=== PATIENT | female | born 1950 | race Caucasian/White ===

== ENCOUNTER 2020-06-08 22:58 | Inpatient (IN) | payer MEDICARE ==
--- NOTE | 2020-06-09 00:07 | XR ---
EXAMINATION TYPE: XR chest 2V DATE OF EXAM: 06/08/2020 COMPARISON: 12/23/2013 HISTORY: Short of breath TECHNIQUE: 2 views FINDINGS: There is some patchy atelectasis and interstitial infiltrate in the mid lung [place]. Heart size is fairly normal. There is no heart failure. Bony thorax is intact. There is no pleural effusion . IMPRESSION: Increased patchy atelectasis and interstitial infiltrates compared to old exam. No obviou s heart failure.
[2020-06-09] MEDS ORDERED: ACETAMINOPHEN TAB 325 MG TAB PO STA (00:58)
[2020-06-09] MEDS ORDERED: ACETAMINOPHEN TAB 325 MG TAB PO PRN (00:58)
[2020-06-09] MEDS ORDERED: DEXAMETHASONE SOD PHOSPHATE 4 MG/ML 1 ML VIAL IV STA (00:59)
--- NOTE | 2020-06-09 01:08 | ED ---
SOB HPI - General Chief Complaint: Shortness of Breath Stated Complaint: BELEM, Covid+ Time Seen by Provider: 06/09/20 00:50 Source: patient Mode of arrival: wheelchair Limitations: no limitations - History of Present Illness Initial Comments: This patient is 69-year-old woman who presents to be evaluated for fever, cough, and developing shortness of breath. The patient states that she started having symptoms at the end of April. She did go for coronavirus testing and was positive on May 31. Patient states that over the past few days it seems her cough is worsened. Tonight she was feeling warm more progressively short of breath. Patient also has been having some aching pains along the costal margins bilaterally. The pain she states is related to coughing. MD Complaint: shortness of breath, cough -: days(s) Radiation: other (Costal margin) Severity: mild Quality: aching Consistency: constant Improves With: oxygen Worsens With: coughing Associated Symptoms: fever, cough - Related Data Home Medications Medication Instructions Recorded Confirmed Lisinopril-Hctz 10-12.5 mg 1 each PO DAILY 12/23/13 06/09/20 [Zestoretic 10-12.5] Azithromycin [Zithromax Z-pack (6 See Taper PO DIRECTED 06/09/20 06/09/20 tabs)] Allergies Allergy/AdvReac Type Severity Reaction Status Date / Time No Known Allergies Allergy Verified 06/09/20 07:55 Review of Systems ROS Statement: Those systems with pertinent positive or pertinent negative responses have been documented in the HPI. ROS Other: All systems not noted in ROS Statement are negative. Constitutional: Reports: fever, chills Respiratory: Reports: cough, dyspnea. Denies: hemoptysis Cardiovascular: Reports: as per HPI, chest pain. Denies: palpitations, orthopnea, edema, syncope Gastrointestinal: Reports: diarrhea. Denies: abdominal pain, nausea, vomiting Genitourinary: Denies: dysuria, hematuria Musculoskeletal: Denies: back pain Skin: Denies: rash Neurological: Denies: headache, weakness Past Medical History Past Medical History: Hypertension Additional Past Medical History / Comment(s): covid 06/20 History of Any Multi-Drug Resistant Organisms: None Reported Past Surgical History: Appendectomy, Tonsillectomy, Tubal Ligation Additional Past Surgical History / Comment(s): ear sx, Past Psychological History: No Psychological Hx Reported Smoking Status: Never smoker Past Alcohol Use History: Occasional Past Drug Use History: None Reported - Past Family History Mother Family Medical History: Cancer Father Family Medical History: Congestive Heart Failure (CHF), Coronary Artery Disease (CAD) General Exam Limitations: no limitations General appearance: alert, in no apparent distress Head exam: Present: atraumatic, normocephalic ENT exam: Present: mucous membranes dry Neck exam: Present: normal inspection Respiratory exam: Present: respiratory distress, rales, chest wall tenderness (Along costal margins), other (Frequent nonproductive cough). Absent: wheezes, rhonchi, stridor, accessory muscle use, decreased breath sounds Cardiovascular Exam: Present: normal rhythm, tachycardia, normal heart sounds. Absent: systolic murmur, diastolic murmur, rubs, gallop GI/Abdominal exam: Present: soft. Absent: distended, tenderness, guarding, rebound, rigid, mass Extremities exam: Present: normal inspection, normal capillary refill. Absent: pedal edema, calf tenderness Back exam: Present: normal inspection Neurological exam: Present: alert Skin exam: Present: warm, dry, intact, normal color. Absent: rash Course Vital Signs 06/08/20 06/09/20 06/09/20 23:32 01:25 01:30 Temperature 102.3 F H Pulse Rate 115 H 106 H 105 H Respiratory 26 H 14 24 Rate Blood Pressure 155/90 O2 Sat by Pulse 86 L 88 L 88 L Oximetry 06/09/20 06/09/20 06/09/20 01:31 01:33 02:00 Temperature Pulse Rate 106 H 105 H Respiratory 18 19 22 Rate Blood Pressure 131/71 138/73 O2 Sat by Pulse 91 L 92 L Oximetry 06/09/20 06/09/20 06/09/20 03:00 04:00 05:00 Temperature Pulse Rate 98 103 H 96 Respiratory 21 18 24 Rate Blood Pressure 136/76 133/70 150/90 O2 Sat by Pulse 89 L 89 L 90 L Oximetry 06/09/20 06/09/20 06/09/20 06:00 07:00 07:05 Temperature Pulse Rate 91 88 87 Respiratory 20 23 24 Rate Blood Pressure 115/65 95/52 114/72 O2 Sat by Pulse 90 L 92 L 90 L Oximetry 0406/09/20 06/09/20 07:10 07:15 07:20 Temperature Pulse Rate 87 87 89 Respiratory 23 23 22 Rate Blood Pressure 114/72 114/72 114/72 O2 Sat by Pulse 90 L 90 L 90 L Oximetry 06/09/20 06/09/20 06/09/20 07:25 07:27 07:30 Temperature 98.1 F Pulse Rate Respiratory Rate Blood Pressure 114/72 114/72 O2 Sat by Pulse Oximetry 06/09/20 06/09/20 06/09/20 07:35 07:40 07:45 Temperature Pulse Rate 98 97 96 Respiratory 8 L 15 9 L Rate Blood Pressure 114/72 114/72 114/72 O2 Sat by Pulse 92 L 92 L 91 L Oximetry 06/09/20 06/09/20 06/09/20 08:00 10:00 11:00 Temperature Pulse Rate 95 84 81 Respiratory 18 14 22 Rate Blood Pressure 122/76 121/73 124/73 O2 Sat by Pulse 92 L 91 L 90 L Oximetry 06/09/20 06/09/20 06/09/20 12:00 13:00 15:31 Temperature Pulse Rate 79 76 94 Respiratory 21 21 18 Rate Blood Pressure 101/67 107/69 130/77 O2 Sat by Pulse 91 L 89 L 91 L Oximetry Medical Decision Making - Lab Data Result diagrams: 06/09/20 01:30 06/09/20 01:30 Lab Results 06/09/20 06/09/20 06/09/20 Range/Units 01:30 01:30 01:30 WBC 6.5 (3.8-10.6) k/uL RBC 4.79 (3.80-5.40) m/uL Hgb 14.7 (11.4-16.0) gm/dL Hct 42.5 (34.0-46.0) % MCV 88.7 (80.0-100.0) fL MCH 30.6 (25.0-35.0) pg MCHC 34.6 (31.0-37.0) g/dL RDW 12.7 (11.5-15.5) % Plt Count 244 (150-450) k/uL MPV 7.2 Neutrophils % 77 % Lymphocytes % 13 % Monocytes % 6 % Eosinophils % 0 % Basophils % 1 % Neutrophils # 5.0 (1.3-7.7) k/uL Lymphocytes # 0.8 L (1.0-4.8) k/uL Monocytes # 0.4 (0-1.0) k/uL Eosinophils # 0.0 (0-0.7) k/uL Basophils # 0.1 (0-0.2) k/uL PT 10.2 (9.0-12.0) sec INR 0.9 (<1.2) APTT 25.4 (22.0-30.0) sec D-Dimer 0.99 H (<0.60) mg/L FEU Sodium 137 (137-145) mmol/L Potassium 3.5 (3.5-5.1) mmol/L Chloride 97 L (98-107) mmol/L Carbon Dioxide 30 (22-30) mmol/L Anion Gap 10 mmol/L BUN 30 H (7-17) mg/dL Creatinine 0.96 (0.52-1.04) mg/dL Est GFR (CKD-EPI)AfAm 69 (>60 ml/min/1.73 sqM) Est GFR (CKD-EPI)NonAf 60 (>60 ml/min/1.73 sqM) Glucose 140 H (74-99) mg/dL Plasma Lactic Acid Edgar (0.7-2.0) mmol/L Calcium 9.1 (8.4-10.2) mg/dL Magnesium 2.1 (1.6-2.3) mg/dL Ferritin 826.3 H (10.0-291.0) ng/mL Total Bilirubin 0.5 (0.2-1.3) mg/dL AST 45 H (14-36) U/L ALT 31 (4-34) U/L Alkaline Phosphatase 68 (38-126) U/L Lactate Dehydrogenase 1247 H (313-618) U/L C-Reactive Protein 224.8 H (<10.0) mg/L Total Protein 7.3 (6.3-8.2) g/dL Albumin 4.3 (3.5-5.0) g/dL Procalcitonin (0.02-0.09) ng/mL 06/09/20 06/09/20 Range/Units 01:30 01:30 WBC (3.8-10.6) k/uL RBC (3.80-5.40) m/uL Hgb (11.4-16.0) gm/dL Hct (34.0-46.0) % MCV (80.0-100.0) fL MCH (25.0-35.0) pg MCHC (31.0-37.0) g/dL RDW (11.5-15.5) % Plt Count (150-450) k/uL MPV Neutrophils % % Lymphocytes % % Monocytes % % Eosinophils % % Basophils % % Neutrophils # (1.3-7.7) k/uL Lymphocytes # (1.0-4.8) k/uL Monocytes # (0-1.0) k/uL Eosinophils # (0-0.7) k/uL Basophils # (0-0.2) k/uL PT (9.0-12.0) sec INR (<1.2) APTT (22.0-30.0) sec D-Dimer (<0.60) mg/L FEU Sodium (137-145) mmol/L Potassium (3.5-5.1) mmol/L Chloride (98-107) mmol/L Carbon Dioxide (22-30) mmol/L Anion Gap mmol/L BUN (7-17) mg/dL Creatinine (0.52-1.04) mg/dL Est GFR (CKD-EPI)AfAm (>60 ml/min/1.73 sqM) Est GFR (CKD-EPI)NonAf (>60 ml/min/1.73 sqM) Glucose (74-99) mg/dL Plasma Lactic Acid Edgar 1.3 (0.7-2.0) mmol/L Calcium (8.4-10.2) mg/dL Magnesium (1.6-2.3) mg/dL Ferritin (10.0-291.0) ng/mL Total Bilirubin (0.2-1.3) mg/dL AST (14-36) U/L ALT (4-34) U/L Alkaline Phosphatase (38-126) U/L Lactate Dehydrogenase (313-618) U/L C-Reactive Protein (<10.0) mg/L Total Protein (6.3-8.2) g/dL Albumin (3.5-5.0) g/dL Procalcitonin 0.15 H (0.02-0.09) ng/mL - EKG Data -: EKG Interpreted by Me EKG shows normal: sinus rhythm, axis (Normal), intervals (VT interval 140 ms, normal. QTc 483 ms, normal. QRS duration 132 ms, prolonged.), QRS complexes (Right bundle branch block pattern), ST-T waves (Normal) Rate: tachycardia (Rate 107 bpm) Disposition Clinical Impression: COVID-19 Disposition: ADMITTED IP TO THIS HOSP Condition: Fair Is patient prescribed a controlled substance at d/c from ED?: No
[2020-06-09 01:49] LABS: Basophils # (A) 0.1 k/uL (0-0.2); Basophils % (A) 1 %; Eosinophils % (A) 0 %; HCT 42.5 % (34.0-46.0); HGB 14.7 gm/dL (11.4-16.0); Lymphocytes # (A) 0.8 k/uL (1.0-4.8); Lymphocytes % (A) 13 %; MCH 30.6 pg (25.0-35.0); MCHC 34.6 g/dL (31.0-37.0); MCV 88.7 fL (80.0-100.0); Mean Platelet Volume 7.2; Monocytes # (A) 0.4 k/uL (0-1.0); Monocytes % (A) 6 %; Neutrophils % (A) 77 %; Platelet Count 244 k/uL (150-450); RBC 4.79 m/uL (3.80-5.40); RDW 12.7 % (11.5-15.5); WBC 6.5 k/uL (3.8-10.6)
[2020-06-09 02:09] LABS: INR 0.9 (<1.2); Partial Thromboplastin Time 25.4 sec (22.0-30.0); Prothrombin Time 10.2 sec (9.0-12.0)
[2020-06-09 02:10] LABS: Potassium 3.5 mmol/L (3.5-5.1)
[2020-06-09 02:14] LABS: Magnesium 2.1 mg/dL (1.6-2.3)
[2020-06-09 02:15] LABS: Albumin 4.3 g/dL (3.5-5.0); Calcium 9.1 mg/dL (8.4-10.2); Total Bilirubin 0.5 mg/dL (0.2-1.3); Total Protein 7.3 g/dL (6.3-8.2)
[2020-06-09 02:22] LABS: D-Dimer 0.99 mg/L FEU (<0.60)
[2020-06-09 02:33] LABS: C Reactive Protein 224.8 mg/L (<10.0)
[2020-06-09] MEDS ORDERED: NALOXONE 0.4 MG/ML 1 ML VIAL IV PRN (03:55)
[2020-06-09] MEDS ORDERED: traMADol 50 MG TAB PO PRN (03:58)
--- NOTE | 2020-06-09 05:19 | CT ---
EXAM: CT Angiography Chest With Intravenous Contrast CLINICAL HISTORY: ITS.REASON CT Reason: R/O PE TECHNIQUE: Axial computed tomographic angiography images of the chest with intravenous contrast. CTDI is 14.27 mGy and DLP is 341.2 mGy-cm. This CT exam was performed using one or more of the following dose reduction techniques: automated exposure control, adjustment of the mA and/or kV according to patient size, and/or use of iterative reconstruction technique. MIP reconstructed images were created and reviewed. COMPARISON: No relevant prior studies available. FINDINGS: Pulmonary arteries: No filling defects. Dilated to 35 mm. Aorta: No thoracic aortic aneurysm. Lungs: Patchy bilateral ground glass opacities. Patchy consolidations in the lower lobes. Pleural space: No pneumothorax. No effusion. Heart: No cardiomegaly. No pericardial effusion. Bones/joints: No acute fracture or dislocation. Soft tissues: 25 mm low density nodule in the bilateral adrenal glands. Moderate hiatal hernia. Lymph nodes: Prominent mediastinal lymph nodes. IMPRESSION: 1. Patchy bilateral ground glass opacities. Patchy consolidations in the lower lobes. Correlate with infectious process/COVID. 2. No PE. Pulmonary artery dilated to 35 mm, correlate with pulmonary artery hypertension. 3. 25 mm low density nodule in the bilateral adrenal glands. Likely adenomas. 4. Moderate hiatal hernia.
[2020-06-09] MEDS: LISINOPRIL-HCTZ 10-12.5 MG 1 EACH TAB PO SCH (08:37)
[2020-06-09] MEDS: CHOLECALCIFEROL 25 MCG (1000 IU) TABLET PO SCH (08:38)
[2020-06-09] MEDS: NAPROXEN 250 MG TAB PO SCH ×2 (08:38→22:18)
[2020-06-09] MEDS: DEXAMETHASONE SOD PHOSPHATE 10 MG/ML 1 ML VIAL IV SCH (08:39)
[2020-06-09] MEDS ORDERED: ASCORBIC ACID 500 MG TAB PO SCH (09:00)
[2020-06-09 09:44] LABS: Ferritin 826.3 ng/mL (10.0-291.0)
--- NOTE | 2020-06-09 16:23 | P.CNPUL ---
History of Present Illness Consult date: 06/09/20 Reason for consult: dyspnea, cough, hypoxemia, pneumonia Chief complaint: Shortness of breath and cough started about 11-12 days ago History of present illness: Patient is a pleasant 69-year-old female seen eval reexamined the emergency department, patient started having symptoms of cough and shortness of breath and of April on May 31 she tested positive for coronary 19 pneumonia, symptoms were persistent and progressive decided to come into the hospital for further evaluation, patient has a history of hypertension and hypertensive cardiovascular disease disease and peptic ulcer disease, patient is a nonsmoker, on arrival she was noted to be febrile with fever of 102.3 tachycardic tachypneic with oxygen saturation of 86%, she was noted to be positive for mildly elevated d-dimer of 0.99, appeared to be slightly dehydrated with BUN of 30, inflammatory parameters are elevated including ferritin of 826, LDH of 1247, and C-reactive protein of 224, pro calcitonin is up 0.15, her chest x-ray significant for bilateral interstitial trait consistent with: 19 pneumonia, computed tomography scan of the chest negative for pulmonary embolism but revealed bilateral interstitial infiltrate and patchy consolidation of lower lobes currently patient is being treated with Lovenox as well as Decadron, and continuation of her home medicines along with supplemental oxygen, Review of Systems All systems: negative Past Medical History Past Medical History: Hypertension Additional Past Medical History / Comment(s): covid 06/20 History of Any Multi-Drug Resistant Organisms: None Reported Past Surgical History: Appendectomy, Tonsillectomy, Tubal Ligation Additional Past Surgical History / Comment(s): ear sx, Past Psychological History: No Psychological Hx Reported Smoking Status: Never smoker Past Alcohol Use History: Occasional Past Drug Use History: None Reported Medications and Allergies Home Medications Medication Instructions Recorded Confirmed Type Lisinopril-Hctz 10-12.5 mg 1 each PO DAILY 12/23/13 06/09/20 History [Zestoretic 10-12.5] Azithromycin [Zithromax Z-pack (6 See Taper PO DIRECTED 06/09/20 06/09/20 History tabs)] Allergies Allergy/AdvReac Type Severity Reaction Status Date / Time No Known Allergies Allergy Verified 06/09/20 07:55 Physical Exam Vitals: Vital Signs Temp Pulse Resp BP Pulse Ox 06/09/20 15:31 94 18 130/77 91 L 06/09/20 13:00 76 21 107/69 89 L 06/09/20 12:00 79 21 101/67 91 L 06/09/20 11:00 81 22 124/73 90 L 06/09/20 10:00 84 14 121/73 91 L 06/09/20 08:00 95 18 122/76 92 L 06/09/20 07:45 96 9 L 114/72 91 L 06/09/20 07:40 97 15 114/72 92 L 06/09/20 07:35 98 8 L 114/72 92 L 06/09/20 07:30 114/72 06/09/20 07:27 98.1 F 06/09/20 07:25 114/72 06/09/20 07:20 89 22 114/72 90 L 06/09/20 07:15 87 23 114/72 90 L 06/09/20 07:10 87 23 114/72 90 L 06/09/20 07:05 87 24 114/72 90 L 06/09/20 07:00 88 23 95/52 92 L 06/09/20 06:00 91 20 115/65 90 L 06/09/20 05:00 96 24 150/90 90 L 06/09/20 04:00 103 H 18 133/70 89 L 06/09/20 03:00 98 21 136/76 89 L 06/09/20 02:00 105 H 22 138/73 92 L 06/09/20 01:33 19 06/09/20 01:31 106 H 18 131/71 91 L 06/09/20 01:30 105 H 24 88 L 06/09/20 01:25 106 H 14 88 L 06/08/20 23:32 102.3 F H 115 H 26 H 155/90 86 L Intake and Output 06/09/20 06/09/20 06/09/20 06:59 14:59 22:59 Other: Weight 90.718 kg - Constitutional General appearance: cooperative, disheveled, obese - EENT Eyes: PERRLA Ears: bilateral: normal - Neck Neck: normal ROM Carotids: bilateral: upstroke normal Thyroid: bilateral: normal size - Respiratory Respiratory: bilateral: CTA - Cardiovascular Rhythm: regular Heart sounds: normal: S1, S2 - Gastrointestinal General gastrointestinal: normal bowel sounds - Integumentary Integumentary: normal turgor - Neurologic Neurologic: CNII-XII intact - Musculoskeletal Musculoskeletal: gait normal, generalized weakness, strength equal bilaterally - Psychiatric Psychiatric: A&O x's 3, appropriate affect, intact judgment & insight Results - Laboratory Findings CBC and BMP: 06/09/20 01:30 06/09/20 01:30 PT/INR, D-dimer PT 10.2 sec (9.0-12.0) 06/09/20 01:30 INR 0.9 (<1.2) 06/09/20 01:30 D-Dimer 0.99 mg/L FEU (<0.60) H 06/09/20 01:30 Abnormal lab findings: Abnormal Labs 06/09/20 06/09/20 06/09/20 01:30 01:30 01:30 Lymphocytes # 0.8 L D-Dimer 0.99 H Chloride 97 L BUN 30 H Glucose 140 H Ferritin 826.3 H AST 45 H Lactate Dehydrogenase 1247 H C-Reactive Protein 224.8 H Procalcitonin 06/09/20 01:30 Lymphocytes # D-Dimer Chloride BUN Glucose Ferritin AST Lactate Dehydrogenase C-Reactive Protein Procalcitonin 0.15 H - Diagnostic Findings Chest x-ray: report reviewed, image reviewed CT scan - chest: report reviewed, image reviewed (Finding as above however secondary bacterial pneumonia cannot be excluded) Assessment and Plan Assessment: Covid 19 pneumonia Acute hypoxic respiratory failure Secondary bacterial pneumonia Obesity Hypertension hypertensive cardiovascular disease Plan: IV Rocephin Continue Decadron Supplemental oxygen Deep breathing exercises incentive spirometry Prone positioning Will do a trial of IV REMdesivir Time with Patient: Greater than 30
[2020-06-09] MEDS: ENOXAPARIN 40 MG/0.4 ML SYRINGE SQ SCH (16:48)
[2020-06-09] MEDS ORDERED: REMDESIVIR 200 MG in SODIUM CHLORIDE 0.9% 250 ML IVPB ONE (18:00)
[2020-06-09] MEDS: FAMOTIDINE 20 MG TAB PO SCH (20:46)
[2020-06-09] MEDS ORDERED: FAMOTIDINE 20 MG TAB PO SCH (21:00)
--- NOTE | 2020-06-09 21:04 | P.HPIM ---
History of Present Illness H&P Date: 06/09/20 Chief Complaint: Shortness of breath History of presenting complaint: This is a very pleasant [address] Alvarez. Patient tested for COVID on May 31. Patient symptoms is started 2 days prior to that. Patient started of her shortness of breath and developed significant headache and body aches. Chills. Henry very fatigued. No loss of taste or smell. Decreased appetite. Became very short of breath. Decided to come to the ER. Fever also present. 102.3 and arrival. Pulse ox was 86% on room air Review of systems: GEN.: Febrile tired decreased appetite EYES: None HEENT: None NECK: None RESPIRATORY: As above CARDIOVASCULAR: None GASTROINTESTINAL: None GENITOURINARY: None MUSCULOSKELETAL: Muscle and joint pains LYMPHATICS: None HEMATOLOGICAL: None PSYCHIATRY: None NEUROLOGICAL: None Past medical history to include: Hypertension, COVID diagnosed on May 31 Social history: . No history of smoking. Alcohol occasionally. Physical examination: VITAL SIGNS: 102.3, 115, 26, 155/90, 86% on room air GENERAL: BMI 32.3, laying in bed, short of breath. EYES: Pupils equal. Conjunctiva normal. HEENT: External appearance of nose and ears normal, oral cavity grossly normal. NECK: JVD not raised; masses not palpable. HEART: First and second heart sounds are normal; no edema. LUNGS: Respiratory rate increased, decreased breath sound some basal crackles. ABDOMEN: Soft, nontender, liver spleen not palpable, no masses palpable. PSYCH: [Alert and oriented x3; mood and affect slightly anxious l. NEUROLOGICAL: Cranial nerves grossly intact; no facial asymmetry, power and sensation grossly intact. LYMPHATICS: No lymph nodes palpable in the axilla and neck INVESTIGATIONS, reviewed in the clinical context: WBC 6.5 hemoglobin 14.7 platelets 244 d-dimer 0.99 potassium 3.5 creatinine 0.96 CRP to 24 pro-calcitonin 0.15 EKG tracing personally reviewed by me-normal sinus rhythm with a right bundle branch block Chest x-ray film personally reviewed by me-bilateral infiltrate CT angiography chest with IV contrast: Patchy bilateral groundglass opacities. Patchy consolidation in the lower lobes. Assessment and plan: -Acute bilateral COVID 19 pneumonia. Symptoms started on May 29 and patient was diagnosed with COVID 19 positivity on May 31 Patient be started on IV Decadron, subcu Lovenox, vitamin C absent vitamin D. Started on IV Remdesivir by pulmonary. -Acute hypoxic respiratory failure from COVID 19 pneumonia Patient currently on 6 L of nasal cannula -Obesity BMI 32.3 Weight loss measures and follow-up with PCP -Essential hypertension Continue with Zestoretic -DVT prophylaxis Patient is on Lovenox Care was discussed with the patient. Questions were answered. Consultation to pulmonary. Given the complexity and severity of patient's condition expect the patient to be in the hospital at least for 2 overnights Past Medical History Past Medical History: Hypertension Additional Past Medical History / Comment(s): covid 06/20 History of Any Multi-Drug Resistant Organisms: None Reported Past Surgical History: Appendectomy, Tonsillectomy, Tubal Ligation Additional Past Surgical History / Comment(s): ear sx, Past Psychological History: No Psychological Hx Reported Smoking Status: Never smoker Past Alcohol Use History: Occasional Past Drug Use History: None Reported - Past Family History Mother Family Medical History: Cancer Father Family Medical History: Congestive Heart Failure (CHF), Coronary Artery Disease (CAD) Medications and Allergies Home Medications Medication Instructions Recorded Confirmed Type Lisinopril-Hctz 10-12.5 mg 1 each PO DAILY 12/23/13 06/09/20 History [Zestoretic 10-12.5] Azithromycin [Zithromax Z-pack (6 See Taper PO DIRECTED 06/09/20 06/09/20 History tabs)] Allergies Allergy/AdvReac Type Severity Reaction Status Date / Time No Known Allergies Allergy Verified 06/09/20 07:55 Physical Exam Vitals: Vital Signs Temp Pulse Resp BP Pulse Ox 06/09/20 08:00 95 18 122/76 92 L 06/09/20 07:45 96 9 L 114/72 91 L 06/09/20 07:40 97 15 114/72 92 L 06/09/20 07:35 98 8 L 114/72 92 L 06/09/20 07:30 114/72 06/09/20 07:27 98.1 F 06/09/20 07:25 114/72 06/09/20 07:20 89 22 114/72 90 L 06/09/20 07:15 87 23 114/72 90 L 06/09/20 07:10 87 23 114/72 90 L 06/09/20 07:05 87 24 114/72 90 L 06/09/20 07:00 88 23 95/52 92 L 06/09/20 06:00 91 20 115/65 90 L 06/09/20 05:00 96 24 150/90 90 L 06/09/20 04:00 103 H 18 133/70 89 L 06/09/20 03:00 98 21 136/76 89 L 06/09/20 02:00 105 H 22 138/73 92 L 06/09/20 01:33 19 06/09/20 01:31 106 H 18 131/71 91 L 06/09/20 01:30 105 H 24 88 L 06/09/20 01:25 106 H 14 88 L 06/08/20 23:32 102.3 F H 115 H 26 H 155/90 86 L Intake and Output 06/08/20 06/09/20 06/09/20 22:59 06:59 14:59 Other: Weight 90.718 kg Results CBC & Chem 7: 06/09/20 01:30 06/09/20 01:30 Labs: Abnormal Lab Results - Last 24 Hours (Table) 06/09/20 06/09/20 06/09/20 Range/Units 01:30 01:30 01:30 Lymphocytes # 0.8 L (1.0-4.8) k/uL D-Dimer 0.99 H (<0.60) mg/L FEU Chloride 97 L (98-107) mmol/L BUN 30 H (7-17) mg/dL Glucose 140 H (74-99) mg/dL Ferritin 826.3 H (10.0-291.0) ng/mL AST 45 H (14-36) U/L Lactate Dehydrogenase 1247 H (313-618) U/L C-Reactive Protein 224.8 H (<10.0) mg/L Procalcitonin (0.02-0.09) ng/mL 06/09/20 Range/Units 01:30 Lymphocytes # (1.0-4.8) k/uL D-Dimer (<0.60) mg/L FEU Chloride (98-107) mmol/L BUN (7-17) mg/dL Glucose (74-99) mg/dL Ferritin (10.0-291.0) ng/mL AST (14-36) U/L Lactate Dehydrogenase (313-618) U/L C-Reactive Protein (<10.0) mg/L Procalcitonin 0.15 H (0.02-0.09) ng/mL
[2020-06-09] MEDS: ZINC SULFATE 220 MG CAP PO SCH (22:19)
--- NOTE | 2020-06-10 06:50 | CONS ---
CONSULTATION DATE OF SERVICE: 06/09/2020 REASON FOR CONSULTATION: COVID-19 infection. HISTORY OF PRESENT ILLNESS: The patient is a 69-year-old female who started having symptoms mostly of head congestion cold around May 27, 2020. The patient did have shortness of breath and cough and initially was evaluated on May 31. The patient was diagnosed with COVID-19 infection. No specific treatment has been advised. Patient advised to increase her multivitamin and zinc intake. The patient mentioned she did not have resolution of her symptoms, however, she started having increasing shortness of breath on minimal exertion. She also had a cough which is moderate in intensity with occasional clear sputum. No hemoptysis. Denies any pleuritic chest pain. The patient did have nausea and decreased appetite. No vomiting. Did have diarrhea. With these symptoms, the patient presented back to the hospital where the patient was evaluated by the ER physician. On arrival to the ER, the patient did have fever of 102.3 degrees Fahrenheit. The patient was hypoxic with O2 sats of 86% on room air. The patient did have a normal white count with lymphopenia. D-dimer 0.99, creatinine 0.96. Ferritin, LDH, CRP elevated. Procalcitonin 0.15. The patient did have a chest x-ray, increased patchy atelectasis in this patient compared to old exam. The patient did have a CT angiogram of the chest that was negative for PE but did show pulmonary hypertension, low density nodule bilateral adenoid glands and patchy bilateral ground-glass opacities. The patient has been admitted to the hospital. Infectious Disease was consulted for further management. REVIEW OF SYSTEMS: Positive points have been mentioned in HPI. Rest of systems are negative. PAST MEDICAL HISTORY: Hypertension, COVID-19. PAST SURGICAL HISTORY: Appendectomy, tonsillectomy, tubal ligation. SOCIAL HISTORY: Denies smoking. Occasionally drinks, no drug use. FAMILY HISTORY: No pertinent findings noticed. ALLERGIES: No known drug allergies. MEDICATIONS: The patient is currently on Tylenol, vitamin C, Rocephin 1 g daily, she is on vitamin D3, Decadron, Lovenox, Pepcid, Zestoretic, Narcan, naproxen, remdesivir, Ultram and zinc sulfate. PHYSICAL EXAMINATION: VITAL SIGNS: Blood pressure 132/87 with a pulse of 84, temperature 98.1, she is 90% on 6 L nasal cannula. GENERAL DESCRIPTION: Patient is an elderly female up in the chair in no distress. No tachypnea or accessory muscles of respiration use. HEENT: Examination shows no pallor or scleral icterus. Oral mucous membrane is dry. NECK: Trachea central, no thyromegaly. LUNGS: Unlabored breathing, coarse crackles bilaterally, no wheeze. HEART: S1-S2, regular rate and rhythm. ABDOMEN: Soft, no tenderness. No guarding or rigidity. EXTREMITIES: No edema of the feet. SKIN: No rash or mass palpable. NEUROLOGICAL: Patient is awake, alert, oriented times three. Mood and affect normal. LABS: Hemoglobin is 14.7, white count 6.5, BUN of 13, creatinine 0.96. 826. Chest x- ray and CT report as mentioned above. DIAGNOSTIC IMPRESSION: Patient admitted to the hospital with increasing shortness of breath and cough. This patient has been diagnosed with acute COVID-19 infection with symptoms starting on 05/27/2020. The patient is currently day 14 of her symptoms and likely out of the therapeutic benefit from remdesivir. Clinical suspicion low for secondary bacterial pneumonia. PLAN: 1. Treat patient mostly with Decadron, Lovenox, zinc and ascorbic acid. No need for systemic antibiotic therapy. 2. Droplet isolation and respiratory support. 3. We will follow on clinical condition and further adjust medication if needed. Thank you for this consultation. Will follow this patient along with you. MMODL / IJN: [id number] /
[2020-06-10] MEDS: LISINOPRIL-HCTZ 10-12.5 MG 1 EACH TAB PO SCH (07:58)
[2020-06-10] MEDS: DEXAMETHASONE SOD PHOSPHATE 10 MG/ML 1 ML VIAL IV SCH (07:58)
[2020-06-10] MEDS: ENOXAPARIN 40 MG/0.4 ML SYRINGE SQ SCH (07:58)
[2020-06-10] MEDS: FAMOTIDINE 20 MG TAB PO SCH ×2 (07:58→20:43)
[2020-06-10] MEDS: CHOLECALCIFEROL 25 MCG (1000 IU) TABLET PO SCH (07:58)
[2020-06-10] MEDS: NAPROXEN 250 MG TAB PO SCH ×2 (07:59→23:22)
[2020-06-10] MEDS: ASCORBIC ACID 500 MG TAB PO SCH (07:59)
[2020-06-10] MEDS: ZINC SULFATE 220 MG CAP PO SCH (07:59)
--- NOTE | 2020-06-10 14:17 | P.PN ---
Subjective Progress Note Date: 06/10/20 Principal diagnosis: Covid 19 pneumonia Acute hypoxic respiratory failure Secondary bacterial pneumonia Obesity Hypertension hypertensive cardiovascular disease 06/10/2020, patient seen eval examined during the rounds labs reviewed medications reviewed care plan discussed, patient slightly more short of breath today compared to yesterday, has been on 6 L oxygen nasal cannula, afebrile with saturation are 95% hemodynamic status stable, patient remains on broad-spectrum antibiotics along with Decadron and Lovenox with continuation of home medications, patient is also on IV REMdesivir five-day therapy with supplements will get chest x-ray tomorrow, Patient is a pleasant 69-year-old female seen eval reexamined the emergency department, patient started having symptoms of cough and shortness of breath and of April on May 31 she tested positive for coronary 19 pneumonia, symptoms were persistent and progressive decided to come into the hospital for further evaluation, patient has a history of hypertension and hypertensive cardiovascular disease disease and peptic ulcer disease, patient is a nonsmoker, on arrival she was noted to be febrile with fever of 102.3 tachycardic tachypneic with oxygen saturation of 86%, she was noted to be positive for mildly elevated d-dimer of 0.99, appeared to be slightly dehydrated with BUN of 30, inflammatory parameters are elevated including ferritin of 826, LDH of 1247, and C-reactive protein of 224, pro calcitonin is up 0.15, her chest x-ray significant for bilateral interstitial trait consistent with: 19 pneumonia, com puted tomography scan of the chest negative for pulmonary embolism but revealed bilateral interstitial infiltrate and patchy consolidation of lower lobes currently patient is being treated with Lovenox as well as Decadron, and continuation of her home medicines along with supplemental oxygen, Objective - Vital Signs Vital signs: Vital Signs Temp 98.5 F 06/10/20 13:48 Pulse 84 06/10/20 13:48 Resp 17 06/10/20 13:48 BP 134/81 06/10/20 13:48 Pulse Ox 95 06/10/20 13:48 Intake & Output 06/09/20 06/10/20 06/10/20 18:59 06:59 18:59 Intake Total 850 Balance 850 Weight 90.718 kg Intake: Oral 850 Other: Voiding Method Toilet Toilet - Exam - Constitutional General appearance: cooperative, disheveled, obese - EENT Eyes: PERRLA Ears: bilateral: normal - Neck Neck: normal ROM Carotids: bilateral: upstroke normal Thyroid: bilateral: normal size - Respiratory Respiratory: bilateral: CTA - Cardiovascular Rhythm: regular Heart sounds: normal: S1, S2 - Gastrointestinal General gastrointestinal: normal bowel sounds - Integumentary Integumentary: normal turgor - Neurologic Neurologic: CNII-XII intact - Musculoskeletal Musculoskeletal: gait normal, generalized weakness, strength equal bilaterally - Psychiatric Psychiatric: A&O x's 3, appropriate affect, intact judgment & insight - Labs CBC & Chem 7: 06/09/20 01:30 06/09/20 01:30 Labs: Abnormal Lab Results - Last 24 Hours (Table) 06/10/20 06/10/20 Range/Units 06:11 06:11 D-Dimer 0.80 H (<0.60) mg/L FEU C-Reactive Protein 86.6 H (<10.0) mg/L Microbiology - Last 24 Hours (Table) 06/09/20 01:35 Blood Culture - Preliminary Blood No Growth after 24 hours 06/09/20 01:20 Blood Culture - Preliminary Blood No Growth after 24 hours Assessment and Plan Assessment: Covid 19 pneumonia Acute hypoxic respiratory failure Secondary bacterial pneumonia Obesity Hypertension hypertensive cardiovascular disease Plan: IV Rocephin Continue Decadron Supplemental oxygen, to keep saturation over 88-90% or above Deep breathing exercises incentive spirometry Prone positioning Five-day therapy of IV REMdesivir Chest x-ray in the morning Time with Patient: Greater than 30
[2020-06-10] MEDS: REMDESIVIR 100 MG in SODIUM CHLORIDE 0.9% 250 ML IVPB SCH (17:05)
--- NOTE | 2020-06-10 19:26 | XR ---
EXAMINATION TYPE: XR chest 1V DATE OF EXAM: 06/10/2020 COMPARISON: 06/09/2020 HISTORY: Shortness of breath. TECHNIQUE: Single frontal view of the chest is obtained. FINDINGS: There is unchanged right midlung patchy opacity with scarring. There is decreased prominen ce of additional bilateral diffuse patchy opacities, which is less conspicuous on radiographs however better depicted on CT. No pleural effusion, or pneumothorax seen. The cardiac silhouette size is wi thin normal limits. The osseous structures are intact. IMPRESSION: As above.
--- NOTE | 2020-06-10 20:18 | PN ---
PROGRESS NOTE DATE OF SERVICE: 06/10/2020 REASON FOR FOLLOWUP: COVID-19 pneumonia. INTERVAL HISTORY: The patient is currently afebrile. The patient is breathing comfortably compared to yesterday. Denies having any chest pain. She did have a cough, has decreased in intensity. No nausea, vomiting or diarrhea. PHYSICAL EXAMINATION: Blood pressure 129/86, pulse of 83, temperature 98.6. She is 96% on 6 L nasal cannula. General description is an elderly female up in the chair in no distress. Respiratory system: Unlabored breathing, decreased intensity of breath sounds. No wheeze. Heart S1, S2. Regular rate and rhythm. Abdomen soft, no tenderness. LABS: D-dimer is down to 0.80. CRP is down to 86.6. IMPRESSION/PLAN: Patient with acute COVID-19 infection and this patient currently has clinically responded to current treatment protocol of dexamethasone, Lovenox, Remdesivir and iron sulfate. Clinical suspicious low for secondary bacterial pneumonia. No need for systemic antibiotic therapy. MMODL / IJN: [id number] /
--- NOTE | 2020-06-10 20:26 | P.PN ---
Progress Note - Text Progress Note Date: 06/10/20 Chief Complaint: Shortness of breath History of presenting complaint: This is a very pleasant [address] Alvarez. tested positive for COVID on May 31. Patient symptoms started 2 days prior to that. Started with shortness of breath and developed significant headache and body aches. Chills. [place] very fatigued. No loss of taste or smell. Decreased appetite. Became very short of breath. Decided to come to the ER. Fever also present. 102.3 upon arrival. Pulse ox was 86% on room air Admitted with acute bilateral COVID 19 pneumonia, acute hypoxic respiratory failure. Started IV Decadron, Lovenox. Oxygen supplemented. Today: 6 L of nasal cannula. Short of breath. A bit tired. Started on Remdesivir Review of systems: Was done for constitutional, cardiovascular, GI, pulmonary. relevant finding as above Active Medications Acetaminophen (Acetaminophen Tab 325 Mg Tab) 650 mg PO Q4HR PRN PRN Reason: Fever>101 Ascorbic Acid (Ascorbic Acid 500 Mg Tab) 1,000 mg PO DAILY [facility] Last Admin: 06/10/20 07:59 Dose: 1,000 mg Documented by: Cholecalciferol (Cholecalciferol 25 Mcg (1000 Iu) Tablet) 50 mcg PO DAILY [facility] Last Admin: 06/10/20 07:58 Dose: 50 mcg Documented by: Dexamethasone Sodium Phosphate (Dexamethasone Sod Phosphate 10 Mg/Ml 1 Ml Vial) 6 mg IV DAILY [facility] Last Admin: 06/10/20 07:58 Dose: 6 mg Documented by: Enoxaparin Sodium (Enoxaparin 40 Mg/0.4 Ml Syringe) 40 mg SQ DAILY [facility] Last Admin: 06/10/20 07:58 Dose: 40 mg Documented by: Famotidine (Famotidine 20 Mg Tab) 20 mg PO BID [facility] Last Admin: 06/10/20 07:58 Dose: 20 mg Documented by: Guaifenesin (Guaifenesin 600 Mg Tablet.Er) 600 mg PO Q12HR [facility] Lisinopril/HCTZ (Lisinopril-Hctz 10-12.5 Mg 1 Each Tab) 1 each PO DAILY [facility] Last Admin: 06/10/20 07:58 Dose: 1 each Documented by: Remdesivir 100 mg/ Sodium (Chloride) 250 mls @ 250 mls/hr IVPB Q24H [facility] Stop: 06/13/20 18:59 Last Admin: 06/10/20 17:05 Dose: 250 mls/hr Documented by: Naloxone HCl (Naloxone 0.4 Mg/Ml 1 Ml Vial) 0.2 mg IV Q2M PRN PRN Reason: Opioid Reversal Naproxen (Naproxen 250 Mg Tab) 500 mg PO Q12HR [facility] Last Admin: 06/10/20 07:59 Dose: Not Given Documented by: Tramadol HCl (Tramadol 50 Mg Tab) 50 mg PO Q4H PRN PRN Reason: Pain Zinc Sulfate (Zinc Sulfate 220 Mg Cap) 220 mg PO DAILY [facility] Last Admin: 06/10/20 07:59 Dose: 220 mg Documented by: Past medical history to include: Hypertension, COVID diagnosed on May 31 Social history: . No history of smoking. Alcohol occasionally. Physical examination: VITAL SIGNS: 97.7, 84, 17, 134/81, 95% on 6 L GENERAL: Laying in bed, tired, short of breath LUNGS: Respiratory rate increased, PSYCH: [Alert and oriented x3; mood and affect slightly anxious l. NEUROLOGICAL: Cranial nerves grossly intact; no facial asymmetry, moving all 4 limbs Rest of the exam as per pulmonary, presenting INVESTIGATIONS, reviewed in the clinical context: June 10: D-dimer 0.8 CRP 86.6 WBC 6.5 hemoglobin 14.7 platelets 244 d-dimer 0.99 potassium 3.5 creatinine 0.96 CRP to 24 pro-calcitonin 0.15 EKG tracing personally reviewed by me-normal sinus rhythm with a right bundle branch block Chest x-ray film personally reviewed by me-bilateral infiltrate CT angiography chest with IV contrast: Patchy bilateral groundglass opacities. Patchy consolidation in the lower lobes. Assessment and plan: -Acute bilateral COVID 19 pneumonia. Symptoms started on May 29 and patient was diagnosed with COVID 19 positivity on May 31-slow to respond on IV Decadron, subcu Lovenox, vitamin C absent vitamin D. IV Remdesivir -Sepsis from COVID 19 pneumonia IV fluids -Acute hypoxic respiratory failure from COVID 19 pneumonia-slow to respond Patient currently on 6 L of nasal cannula -Obesity BMI 32.3 Weight loss measures and follow-up with PCP -Essential hypertension Continue with Zestoretic -DVT prophylaxis Patient is on Lovenox Continue current medication treatment plan. Encouraged use incentive spirometry. Sitting upon a chair.
[2020-06-10] MEDS: guaiFENesin 600 MG TABLET.ER PO SCH (20:43)
[2020-06-11] MEDS: NAPROXEN 250 MG TAB PO SCH ×3 (08:43→21:02)
[2020-06-11] MEDS: ZINC SULFATE 220 MG CAP PO SCH (08:43)
[2020-06-11] MEDS: DEXAMETHASONE SOD PHOSPHATE 10 MG/ML 1 ML VIAL IV SCH (08:43)
[2020-06-11] MEDS: LISINOPRIL-HCTZ 10-12.5 MG 1 EACH TAB PO SCH (08:43)
[2020-06-11] MEDS: guaiFENesin 600 MG TABLET.ER PO SCH ×2 (08:43→21:02)
[2020-06-11] MEDS: CHOLECALCIFEROL 25 MCG (1000 IU) TABLET PO SCH (08:44)
[2020-06-11] MEDS: FAMOTIDINE 20 MG TAB PO SCH ×2 (08:44→21:01)
[2020-06-11] MEDS: ASCORBIC ACID 500 MG TAB PO SCH (08:44)
[2020-06-11] MEDS: ENOXAPARIN 40 MG/0.4 ML SYRINGE SQ SCH (08:44)
[2020-06-11] MEDS: REMDESIVIR 100 MG in SODIUM CHLORIDE 0.9% 250 ML IVPB SCH (16:56)
--- NOTE | 2020-06-11 18:42 | PN ---
PROGRESS NOTE DATE OF SERVICE: 06/11/2020 REASON FOR FOLLOWUP: COVID-19 infection. INTERVAL HISTORY: The patient is currently afebrile. The patient is breathing more comfortably. The patient denies having any chest pain. Occasional cough. No abdominal pain or diarrhea. FiO2 is currently down to 4 L. PHYSICAL EXAMINATION: Blood pressure 143/76, pulse of 70, temperature 98.7. She is 93% on 4 L nasal cannula. General description is an elderly female up in the bed in no distress. RESPIRATORY SYSTEM: Unlabored breathing with decreased intensity of breath sounds. No wheeze. HEART: S1, S2. Regular rate and rhythm. ABDOMEN: Soft. No tenderness. LABS: No new labs have been obtained today. DIAGNOSTIC IMPRESSION AND PLAN: Patient with acute COVID-19 infection in this patient clinically responding to current treatment protocol of remdesivir, dexamethasone, Lovenox, zinc and ascorbic acid; to continue along with respiratory support. Monitor clinical course closely. MMELMIRAL / IJN: [id number] /
--- NOTE | 2020-06-11 23:01 | P.PN ---
Progress Note - Text Progress Note Date: 06/11/20 Chief Complaint: Shortness of breath History of presenting complaint: This is a very pleasant [address] Alvarez. tested positive for COVID on May 31. Patient symptoms started 2 days prior to that. Started with shortness of breath and developed significant headache and body aches. Chills. [place] very fatigued. No loss of taste or smell. Decreased appetite. Became very short of breath. Decided to come to the ER. Fever also present. 102.3 upon arrival. Pulse ox was 86% on room air Admitted with acute bilateral COVID 19 pneumonia, acute hypoxic respiratory failure. Started IV Decadron, Lovenox. Oxygen supplemented. Remdesivir Today: Breathing better. On 6 L nasal cannula. Appetite improving Review of systems: Was done for constitutional, cardiovascular, GI, pulmonary. relevant finding as above Active Medications Acetaminophen (Acetaminophen Tab 325 Mg Tab) 650 mg PO Q4HR PRN PRN Reason: Fever>101 Ascorbic Acid (Ascorbic Acid 500 Mg Tab) 1,000 mg PO DAILY [facility] Last Admin: 06/11/20 08:44 Dose: 1,000 mg Documented by: Cholecalciferol (Cholecalciferol 25 Mcg (1000 Iu) Tablet) 50 mcg PO DAILY [facility] Last Admin: 06/11/20 08:44 Dose: 50 mcg Documented by: Dexamethasone Sodium Phosphate (Dexamethasone Sod Phosphate 10 Mg/Ml 1 Ml Vial) 6 mg IV DAILY [facility] Last Admin: 06/11/20 08:43 Dose: 6 mg Documented by: Enoxaparin Sodium (Enoxaparin 40 Mg/0.4 Ml Syringe) 40 mg SQ DAILY [facility] Last Admin: 06/11/20 08:44 Dose: 40 mg Documented by: Famotidine (Famotidine 20 Mg Tab) 20 mg PO BID [facility] Last Admin: 06/11/20 21:01 Dose: 20 mg Documented by: Guaifenesin (Guaifenesin 600 Mg Tablet.Er) 600 mg PO Q12HR [facility] Last Admin: 06/11/20 21:02 Dose: 600 mg Documented by: Lisinopril/HCTZ (Lisinopril-Hctz 10-12.5 Mg 1 Each Tab) 1 each PO DAILY [facility] Last Admin: 06/11/20 08:43 Dose: 1 each Documented by: Remdesivir 100 mg/ Sodium (Chloride) 250 mls @ 250 mls/hr IVPB Q24H [facility] Stop: 06/13/20 18:59 Last Admin: 06/11/20 16:56 Dose: 250 mls/hr Documented by: Naloxone HCl (Naloxone 0.4 Mg/Ml 1 Ml Vial) 0.2 mg IV Q2M PRN PRN Reason: Opioid Reversal Naproxen (Naproxen 250 Mg Tab) 500 mg PO Q12HR [facility] Last Admin: 06/11/20 21:02 Dose: Not Given Documented by: Tramadol HCl (Tramadol 50 Mg Tab) 50 mg PO Q4H PRN PRN Reason: Pain Zinc Sulfate (Zinc Sulfate 220 Mg Cap) 220 mg PO DAILY [facility] Last Admin: 06/11/20 08:43 Dose: 220 mg Documented by: Past medical history to include: Hypertension, COVID diagnosed on May 31 Social history: . No history of smoking. Alcohol occasionally. Physical examination: VITAL SIGNS: 98.3, 87, 16, 146-89, 96% on 6 L GENERAL: Sitting up, breathing a bit better LUNGS: Respiratory rate increased, PSYCH: [Alert and oriented x3; mood and affect slightly anxious NEUROLOGICAL: Cranial nerves grossly intact; no facial asymmetry, moving all 4 limbs Rest of the exam as per pulmonary, presenting INVESTIGATIONS, reviewed in the clinical context: June 10: D-dimer 0.8 CRP 86.6 WBC 6.5 hemoglobin 14.7 platelets 244 d-dimer 0.99 potassium 3.5 creatinine 0.96 CRP to 24 pro-calcitonin 0.15 EKG tracing personally reviewed by me-normal sinus rhythm with a right bundle branch block Chest x-ray film personally reviewed by me-bilateral infiltrate CT angiography chest with IV contrast: Patchy bilateral groundglass opacities. Patchy consolidation in the lower lobes. Assessment and plan: -Acute bilateral COVID 19 pneumonia. Symptoms started on May 29 and patient was diagnosed with COVID 19 positivity on May 31-slow to respond on IV Decadron, subcu Lovenox, vitamin C absent vitamin D. IV Remdesivir -Sepsis from COVID 19 pneumonia IV fluids -Acute hypoxic respiratory failure from COVID 19 pneumonia-slow to respond Patient currently on 6 L of nasal cannula -Obesity BMI 32.3 Weight loss measures and follow-up with PCP -Essential hypertension Continue with Zestoretic -DVT prophylaxis Patient is on Lovenox Continue current medication treatment plan. Encouraged use incentive spirometry. Sitting upon a chair.
[2020-06-12] MEDS: ENOXAPARIN 40 MG/0.4 ML SYRINGE SQ SCH (08:33)
[2020-06-12] MEDS: ZINC SULFATE 220 MG CAP PO SCH (08:34)
[2020-06-12] MEDS: DEXAMETHASONE SOD PHOSPHATE 10 MG/ML 1 ML VIAL IV SCH (08:34)
[2020-06-12] MEDS: ASCORBIC ACID 500 MG TAB PO SCH (08:34)
[2020-06-12] MEDS: FAMOTIDINE 20 MG TAB PO SCH ×2 (08:34→20:21)
[2020-06-12] MEDS: guaiFENesin 600 MG TABLET.ER PO SCH ×2 (08:35→20:21)
[2020-06-12] MEDS: LISINOPRIL-HCTZ 10-12.5 MG 1 EACH TAB PO SCH (08:35)
[2020-06-12] MEDS: NAPROXEN 250 MG TAB PO SCH ×2 (08:35→20:03)
[2020-06-12] MEDS: CHOLECALCIFEROL 25 MCG (1000 IU) TABLET PO SCH (08:35)
--- NOTE | 2020-06-12 11:45 | P.PN ---
Subjective Progress Note Date: 06/11/20 Principal diagnosis: Covid 19 pneumonia Acute hypoxic respiratory failure Secondary bacterial pneumonia Obesity Hypertension hypertensive cardiovascular disease 06/11/2020, patient seen eval reexamined remains on 2 L, cough congestion shortness breath continued to improve patient remains on therapy for coronary 19 pneumonia 06/10/2020, patient seen eval examined during the rounds labs reviewed medications reviewed care plan discussed, patient slightly more short of breath today compared to yesterday, has been on 6 L oxygen nasal cannula, afebrile with saturation are 95% hemodynamic status stable, patient remains on broad-spectrum antibiotics along with Decadron and Lovenox with continuation of home medications, patient is also on IV REMdesivir five-day therapy with supplements will get chest x-ray tomorrow, Patient is a pleasant 69-year-old female seen eval reexamined the emergency department, patient started having symptoms of cough and shortness of breath and of April on May 31 she tested positive for coronary 19 pneumonia, symptoms were persistent and progressive decided to come into the hospital for further evaluation, patient has a history of hypertension and hypertensive cardiovascular disease disease and peptic ulcer disease, patient is a nonsmoker, on arrival she was noted to be febrile with fever of 102.3 tachycardic tachypneic with oxygen saturation of 86%, she was noted to be positive for mildly elevated d-dimer of 0.99, appeared to be slightly dehydrated with BUN of 30, inflammatory parameters are elevated including ferritin of 826, LDH of 1247, and C-reactive protein of 224, pro calcitonin is up 0.15, her chest x-ray significant for bilateral interstitial trait consistent with: 19 pneumonia, computed tomography scan of the chest negative for pulmonary embolism but revealed bilateral interstitial infiltrate and patchy consolidation of lower lobes currently patient is being treated with Lovenox as well as Decadron, and continuation of her home medicines along with supplemental oxygen, Objective - Vital Signs Vital signs: Vital Signs Temp 98.3 F 06/11/20 13:17 Pulse 87 06/11/20 13:17 Resp 16 06/11/20 10:59 BP 146/89 06/11/20 13:17 Pulse Ox 93 L 06/11/20 13:55 Intake & Output 06/10/20 06/11/20 06/11/20 18:59 06:59 18:59 Intake Total 850 Balance 850 Intake: Oral 850 Other: Voiding Method Toilet Toilet # Voids 3 3 - Exam - Constitutional General appearance: cooperative, disheveled, obese - EENT Eyes: PERRLA Ears: bilateral: normal - Neck Neck: normal ROM Carotids: bilateral: upstroke normal Thyroid: bilateral: normal size - Respiratory Respiratory: bilateral: CTA - Cardiovascular Rhythm: regular Heart sounds: normal: S1, S2 - Gastrointestinal General gastrointestinal: normal bowel sounds - Integumentary Integumentary: normal turgor - Neurologic Neurologic: CNII-XII intact - Musculoskeletal Musculoskeletal: gait normal, generalized weakness, strength equal bilaterally - Psychiatric Psychiatric: A&O x's 3, appropriate affect, intact judgment & insight - Labs CBC & Chem 7: 06/09/20 01:30 06/09/20 01:30 Labs: Microbiology - Last 24 Hours (Table) 06/09/20 01:20 Blood Culture - Preliminary Blood No Growth after 48 hours 06/09/20 01:35 Blood Culture - Preliminary Blood No Growth after 48 hours Assessment and Plan Assessment: Covid 19 pneumonia Acute hypoxic respiratory failure Secondary bacterial pneumonia Obesity Hypertension hypertensive cardiovascular disease Plan: IV Rocephin Continue Decadron Supplemental oxygen, to keep saturation over 88-90% or above Deep breathing exercises incentive spirometry Prone positioning Five-day therapy of IV REMdesivir Chest x-ray in the morning Time with Patient: Greater than 30
--- NOTE | 2020-06-12 11:46 | P.PN ---
Subjective Progress Note Date: 06/12/20 Principal diagnosis: Covid 19 pneumonia Acute hypoxic respiratory failure Secondary bacterial pneumonia Obesity Hypertension hypertensive cardiovascular disease 06/12/2020, patient seen eval examined during the rounds labs reviewed medications reviewed, would check room air oxygen saturations, continue therapy possible discharge in next 24-48 hours depending upon the clinical response 06/11/2020, patient seen eval reexamined remains on 2 L, cough congestion shortness breath continued to improve patient remains on therapy for coronary 19 pneumonia 06/10/2020, patient seen eval examined during the rounds labs reviewed medications reviewed care plan discussed, patient slightly more short of breath today compared to yesterday, has been on 6 L oxygen nasal cannula, afebrile with saturation are 95% hemodynamic status stable, patient remains on broad-spectrum antibiotics along with Decadron and Lovenox with continuation of home medications, patient is also on IV REMdesivir five-day therapy with supplements will get chest x-ray tomorrow, Patient is a pleasant 69-year-old female seen eval reexamined the emergency department, patient started having symptoms of cough and shortness of breath and of April on May 31 she tested positive for coronary 19 pneumonia, symptoms were persistent and progressive decided to come into the hospital for further evaluation, patient has a history of hypertension and hypertensive cardiovascular disease disease and peptic ulcer disease, patient is a nonsmoker, on arrival she was noted to be febrile with fever of 102.3 tachycardic tachypneic with oxygen saturation of 86%, she was noted to be positive for mildly elevated d-dimer of 0.99, appeared to be slightly dehydrated with BUN of 30, inflammatory parameters are elevated including ferritin of 826, LDH of 1247, and C-reactive protein of 224, pro calcitonin is up 0.15, her chest x-ray significant for bilateral interstitial trait consistent with: 19 pneumonia, computed tomography scan of the chest negative for pulmonary embolism but revealed bilateral interstitial infiltrate and patchy consolidation of lower lobes currently patient is being treated with Lovenox as well as Decadron, and continuation of her home medicines along with supplemental oxygen, Objective - Vital Signs Vital signs: Vital Signs Temp 97.7 F 06/12/20 08:00 Pulse 66 06/12/20 08:35 Resp 18 06/12/20 08:35 BP 160/95 06/12/20 08:00 Pulse Ox 93 L 06/12/20 08:00 Intake & Output 06/11/20 06/12/20 06/12/20 18:59 06:59 18:59 Other: Voiding Method Toilet # Voids 3 2 - Exam - Constitutional General appearance: cooperative, disheveled, obese - EENT Eyes: PERRLA Ears: bilateral: normal - Neck Neck: normal ROM Carotids: bilateral: upstroke normal Thyroid: bilateral: normal size - Respiratory Respiratory: bilateral: CTA - Cardiovascular Rhythm: regular Heart sounds: normal: S1, S2 - Gastrointestinal General gastrointestinal: normal bowel sounds - Integumentary Integumentary: normal turgor - Neurologic Neurologic: CNII-XII intact - Musculoskeletal Musculoskeletal: gait normal, generalized weakness, strength equal bilaterally - Psychiatric Psychiatric: A&O x's 3, appropriate affect, intact judgment & insight - Labs CBC & Chem 7: 06/09/20 01:30 06/09/20 01:30 Labs: Abnormal Lab Results - Last 24 Hours (Table) 06/12/20 Range/Units 04:50 C-Reactive Protein 32.5 H (<10.0) mg/L Microbiology - Last 24 Hours (Table) 06/09/20 01:35 Blood Culture - Preliminary Blood No Growth after 72 hours 06/09/20 01:20 Blood Culture - Preliminary Blood No Growth after 72 hours Assessment and Plan Assessment: Covid 19 pneumonia Acute hypoxic respiratory failure Secondary bacterial pneumonia Obesity Hypertension hypertensive cardiovascular disease Plan: IV Rocephin Continue Decadron Supplemental oxygen, to keep saturation over 88-90% or above Deep breathing exercises incentive spirometry Prone positioning Five-day therapy of IV REMdesivir Time with Patient: Greater than 30
[2020-06-12] MEDS: REMDESIVIR 100 MG in SODIUM CHLORIDE 0.9% 250 ML IVPB SCH (19:41)
--- NOTE | 2020-06-12 20:35 | PN ---
PROGRESS NOTE DATE OF SERVICE: 06/12/2020 REASON FOR FOLLOWUP: COVID-19 pneumonia. INTERVAL HISTORY: The patient is afebrile. The patient is breathing slightly comfortably. The patient denies having any chest pain. She did have a cough, not bringing up any sputum. No nausea, no vomiting, no abdominal pain or diarrhea. PHYSICAL EXAMINATION: Blood pressure 144/85, pulse of 67, temperature 98.2. She is 95% on 2 L nasal cannula. General description is an elderly female up in the chair in no distress. RESPIRATORY SYSTEM: Unlabored breathing with decreased intensity of breath sounds. No wheeze. HEART: S1, S2. Regular rate and rhythm. ABDOMEN: Soft. No tenderness. LABS: D-dimer is 0.55. CRP down to 32.5. DIAGNOSTIC IMPRESSION AND PLAN: Patient with acute COVID-19 pneumonia in this patient who has shown overall clinical improvement. Inflammatory marker has improved as well. Currently on dexamethasone, Lovenox, zinc, ascorbic acid and remdesivir; to continue and monitor clinical course closely. Continue with supportive care. MMODL / IJN: [id number] /
--- NOTE | 2020-06-12 22:42 | P.PN ---
Progress Note - Text Progress Note Date: 06/12/20 Chief Complaint: Shortness of breath History of presenting complaint: This is a very pleasant [address] Alvarez. tested positive for COVID on May 31. Patient symptoms started 2 days prior to that. Started with shortness of breath and developed significant headache and body aches. Chills. [place] very fatigued. No loss of taste or smell. Decreased appetite. Became very short of breath. Decided to come to the ER. Fever also present. 102.3 upon arrival. Pulse ox was 86% on room air Admitted with acute bilateral COVID 19 pneumonia, acute hypoxic respiratory failure. Started IV Decadron, Lovenox. Oxygen supplemented. Remdesivir Today: Breathing better. FiO2 down to 3 L. Oral intake better. Sitting up. Review of systems: Was done for constitutional, cardiovascular, GI, pulmonary. relevant finding as above Active Medications Acetaminophen (Acetaminophen Tab 325 Mg Tab) 650 mg PO Q4HR PRN PRN Reason: Fever>101 Ascorbic Acid (Ascorbic Acid 500 Mg Tab) 1,000 mg PO DAILY [facility] Last Admin: 06/12/20 08:34 Dose: 1,000 mg Documented by: Cholecalciferol (Cholecalciferol 25 Mcg (1000 Iu) Tablet) 50 mcg PO DAILY [facility] Last Admin: 06/12/20 08:35 Dose: 50 mcg Documented by: Dexamethasone Sodium Phosphate (Dexamethasone Sod Phosphate 10 Mg/Ml 1 Ml Vial) 6 mg IV DAILY [facility] Last Admin: 06/12/20 08:34 Dose: 6 mg Documented by: Enoxaparin Sodium (Enoxaparin 40 Mg/0.4 Ml Syringe) 40 mg SQ DAILY [facility] Last Admin: 06/12/20 08:33 Dose: 40 mg Documented by: Famotidine (Famotidine 20 Mg Tab) 20 mg PO BID [facility] Last Admin: 06/12/20 20:21 Dose: 20 mg Documented by: Guaifenesin (Guaifenesin 600 Mg Tablet.Er) 600 mg PO Q12HR [facility] Last Admin: 06/12/20 20:21 Dose: 600 mg Documented by: Lisinopril/HCTZ (Lisinopril-Hctz 10-12.5 Mg 1 Each Tab) 1 each PO DAILY [facility] Last Admin: 06/12/20 08:35 Dose: 1 each Documented by: Remdesivir 100 mg/ Sodium (Chloride) 250 mls @ 250 mls/hr IVPB Q24H [facility] Stop: 06/13/20 18:59 Last Admin: 06/12/20 19:41 Dose: 250 mls/hr Documented by: Naloxone HCl (Naloxone 0.4 Mg/Ml 1 Ml Vial) 0.2 mg IV Q2M PRN PRN Reason: Opioid Reversal Naproxen (Naproxen 250 Mg Tab) 500 mg PO Q12HR [facility] Last Admin: 06/12/20 20:03 Dose: Not Given Documented by: Tramadol HCl (Tramadol 50 Mg Tab) 50 mg PO Q4H PRN PRN Reason: Pain Zinc Sulfate (Zinc Sulfate 220 Mg Cap) 220 mg PO DAILY [facility] Last Admin: 06/12/20 08:34 Dose: 220 mg Documented by: Past medical history to include: Hypertension, COVID diagnosed on May 31 Social history: . No history of smoking. Alcohol occasionally. Physical examination: VITAL SIGNS: 98, 76, 16, 1 5188, 93% on 2 L GENERAL: Sitting up, in a chair, eating, breathing improved LUNGS: Respiratory rate increased, PSYCH: [Alert and oriented x3; mood and affect slightly anxious NEUROLOGICAL: Cranial nerves grossly intact; no facial asymmetry, moving all 4 limbs Rest of the exam as per pulmonary, presenting INVESTIGATIONS, reviewed in the clinical context: June 12: D-dimer 0.55 CRP 32.5 June 10: D-dimer 0.8 CRP 86.6 WBC 6.5 hemoglobin 14.7 platelets 244 d-dimer 0.99 potassium 3.5 creatinine 0.96 CRP to 24 pro-calcitonin 0.15 EKG tracing personally reviewed by me-normal sinus rhythm with a right bundle branch block Chest x-ray film personally reviewed by me-bilateral infiltrate CT angiography chest with IV contrast: Patchy bilateral groundglass opacities. Patchy consolidation in the lower lobes. Assessment and plan: -Acute bilateral COVID 19 pneumonia. Symptoms started on May 29 and patient was diagnosed with COVID 19 positivity on May 31-improving on IV Decadron, subcu Lovenox, vitamin C t vitamin D. IV Remdesivir -Sepsis from COVID 19 pneumonia-better IV fluids -Acute hypoxic respiratory failure from COVID 19 much improved Patient currently on 2 L of nasal cannula -Obesity BMI 32.3 Weight loss measures and follow-up with PCP -Essential hypertension Continue with Zestoretic -DVT prophylaxis Patient is on Lovenox Patient has significantly improved. He'll be getting a last dose of Remdesivir tomorrow. Can be discharged home after that. We will reassess oxygen requirement tomorrow.
[2020-06-13] MEDS: DEXAMETHASONE SOD PHOSPHATE 10 MG/ML 1 ML VIAL IV SCH (07:47)
[2020-06-13] MEDS: ENOXAPARIN 40 MG/0.4 ML SYRINGE SQ SCH (07:47)
[2020-06-13] MEDS: ASCORBIC ACID 500 MG TAB PO SCH (07:48)
[2020-06-13] MEDS: CHOLECALCIFEROL 25 MCG (1000 IU) TABLET PO SCH (07:48)
[2020-06-13] MEDS: FAMOTIDINE 20 MG TAB PO SCH (07:48)
[2020-06-13] MEDS: guaiFENesin 600 MG TABLET.ER PO SCH (07:48)
[2020-06-13] MEDS: ZINC SULFATE 220 MG CAP PO SCH (07:48)
[2020-06-13] MEDS: LISINOPRIL-HCTZ 10-12.5 MG 1 EACH TAB PO SCH (07:48)
[2020-06-13] MEDS: NAPROXEN 250 MG TAB PO SCH (09:27)
[2020-06-13 10:44] VITALS: BP 149/83; PULSE 79; RESP 18; TEMP 97.4
--- NOTE | 2020-06-13 11:24 | P.PN ---
Subjective Progress Note Date: 06/13/20 Principal diagnosis: Covid 19 pneumonia Acute hypoxic respiratory failure Secondary bacterial pneumonia Obesity Hypertension hypertensive cardiovascular disease 06/13/2020, patient seen eval reexamined during the rounds labs reviewed medications reviewed care plan discussed with the patient, denies any chest pain, now down to 3 L of cannula with taper further however patient can be discharged home on supplemental oxygen follow up as outpatient 06/12/2020, patient seen eval examined during the rounds labs reviewed medications reviewed, would check room air oxygen saturations, continue therapy possible discharge in next 24-48 hours depending upon the clinical response 06/11/2020, patient seen eval reexamined remains on 2 L, cough congestion shortness breath continued to improve patient remains on therapy for coronary 19 pneumonia 06/10/2020, patient seen eval examined during the rounds labs reviewed medications reviewed care plan discussed, patient slightly more short of breath today compared to yesterday, has been on 6 L oxygen nasal cannula, afebrile with saturation are 95% hemodynamic status stable, patient remains on broad-spectrum antibiotics along with Decadron and Lovenox with continuation of home medications, patient is also on IV REMdesivir five-day therapy with supplements will get chest x-ray tomorrow, Patient is a pleasant 69-year-old female seen eval reexamined the emergency department, patient started having symptoms of cough and shortness of breath and of April on May 31 she tested positive for coronary 19 pneumonia, symptoms were persistent and progressive decided to come into the hospital for further evaluation, patient has a history of hypertension and hypertensive cardiovascular disease disease and peptic ulcer disease, patient is a nonsmoker, on arrival she was noted to be febrile with fever of 102.3 tachycardic tachypne ic with oxygen saturation of 86%, she was noted to be positive for mildly elevated d-dimer of 0.99, appeared to be slightly dehydrated with BUN of 30, inflammatory parameters are elevated including ferritin of 826, LDH of 1247, and C-reactive protein of 224, pro calcitonin is up 0.15, her chest x-ray significant for bilateral interstitial trait consistent with: 19 pneumonia, computed tomography scan of the chest negative for pulmonary embolism but revealed bilateral interstitial infiltrate and patchy consolidation of lower lobes currently patient is being treated with Lovenox as well as Decadron, and continuation of her home medicines along with supplemental oxygen, Objective - Vital Signs Vital signs: Vital Signs Temp 97.4 F L 06/13/20 10:30 Pulse 79 06/13/20 10:30 Resp 18 06/13/20 10:30 BP 149/83 06/13/20 10:30 Pulse Ox 94 L 06/13/20 10:30 Intake & Output 06/12/20 06/13/20 06/13/20 18:59 06:59 18:59 Other: Voiding Method Toilet Toilet Toilet # Voids 2 - Exam - Constitutional General appearance: cooperative, disheveled, obese - EENT Eyes: PERRLA Ears: bilateral: normal - Neck Neck: normal ROM Carotids: bilateral: upstroke normal Thyroid: bilateral: normal size - Respiratory Respiratory: bilateral: CTA - Cardiovascular Rhythm: regular Heart sounds: normal: S1, S2 - Gastrointestinal General gastrointestinal: normal bowel sounds - Integumentary Integumentary: normal turgor - Neurologic Neurologic: CNII-XII intact - Musculoskeletal Musculoskeletal: gait normal, generalized weakness, strength equal bilaterally - Psychiatric Psychiatric: A&O x's 3, appropriate affect, intact judgment & insight - Labs CBC & Chem 7: 06/09/20 01:30 06/09/20 01:30 Labs: Microbiology - Last 24 Hours (Table) 06/09/20 01:35 Blood Culture - Preliminary Blood No Growth after 96 hours 06/09/20 01:20 Blood Culture - Preliminary Blood No Growth after 96 hours Assessment and Plan Assessment: Covid 19 pneumonia Acute hypoxic respiratory failure Secondary bacterial pneumonia Obesity Hypertension hypertensive cardiovascular disease Plan: IV Rocephin, can be switched to oral Ceftin 250 twice a day for 5 days at the time of discharge Continue Decadron can be switched to oral 6 mg daily for another 1 week to 10 days Supplemental oxygen, to keep saturation over 88-90% or above Deep breathing exercises incentive spirometry Prone positioning Status post Five-day therapy of IV REMdesivir Patient can go home on supplemental oxygen follow up telemetry medicine in 1-2 weeks Time with Patient: Greater than 30
[2020-06-13] MEDS ORDERED: REMDESIVIR 100 MG in SODIUM CHLORIDE 0.9% 250 ML IVPB SCH (13:00)
--- NOTE | 2020-06-13 22:35 | P.DS ---
Providers Date of admission: 06/09/20 03:56 Expected date of discharge: 06/13/20 Attending physician: Sebastián Norwood Consults: 06/09/20 03:56 Consult Physician Routine Consulting Provider: Efrain Morse Consult Reason/Comments: Covid pneumonia Do you want consulting provider notified?: Already Contacted 06/09/20 10:45 Consult Physician Routine Consulting Provider: Trino Garcia Consult Reason/Comments: covid-19 Do you want consulting provider notified?: Yes Primary care physician: [facility] [place] Course: Chief Complaint: Shortness of breath History of presenting complaint: This is a very pleasant [address] Alvarez. tested positive for COVID on May 31. Patient symptoms started 2 days prior to that. Started with shortness of breath and developed significant headache and body aches. Chills. [place] very fatigued. No loss of taste or smell. Decreased appetite. Became very short of breath. Decided to come to the ER. Fever also present. 102.3 upon arrival. Pulse ox was 86% on room air Admitted with acute bilateral COVID 19 pneumonia, acute hypoxic respiratory failure. Started IV Decadron, Lovenox. Oxygen supplemented. Remdesivir Today: Patient greatly improved. Oral intake good. Pulse ox 93% room air. Very keen to go home. Care was discussed with the patient. Discussion and discharge planning more than 35 minutes Consultation: Dr. Saima Morse from pulmonary Past medical history to include: Hypertension, COVID diagnosed on May 31 Social history: . No history of smoking. Alcohol occasionally. Physical examination: VITAL SIGNS: 97.4, 79, 18, 149 with 83, 93% on room air GENERAL: Sitting up, in a chair, comfortable LUNGS: Respiratory rate normal, PSYCH: [Alert and oriented x3; mood and affect normal NEUROLOGICAL: Cranial nerves grossly intact; no facial asymmetry, moving all 4 limbs Rest of the exam as per pulmonary, presenting INVESTIGATIONS, reviewed in the clinical context: June 12: D-dimer 0.55 CRP 32.5 June 10: D-dimer 0.8 CRP 86.6 WBC 6.5 hemoglobin 14.7 platelets 244 d-dimer 0.99 potassium 3.5 creatinine 0.96 CRP to 24 pro-calcitonin 0.15 EKG tracing personally reviewed by me-normal sinus rhythm with a right bundle branch block Chest x-ray film personally reviewed by me-bilateral infiltrate CT angiography chest with IV contrast: Patchy bilateral groundglass opacities. Patchy consolidation in the lower lobes. Assessment and plan: -Acute bilateral COVID 19 pneumonia. Symptoms started on May 29 and patient was diagnosed with COVID 19 positivity on May 31-much improved on IV Decadron, subcu Lovenox, vitamin C t vitamin D. IV Remdesivir -Sepsis from COVID 19 pneumonia-better IV fluids -Acute hypoxic respiratory failure from COVID 19 much improved Now 93% on room air -Obesity BMI 32.3 Weight loss measures and follow-up with PCP -Essential hypertension Continue with Zestoretic -DVT prophylaxis Patient is on Lovenox Disposition: Home Plan - Discharge Summary Discharge Rx Participant: Yes New Discharge Prescriptions: New Zinc Sulfate [Orazinc] 220 mg PO DAILY #30 cap predniSONE 10 mg PO DAILY #30 tab Acetaminophen Tab [Tylenol] 650 mg PO Q4HR PRN tab PRN Reason: Fever>101 Ascorbic Acid [Vitamin C] 1,000 mg PO DAILY #30 tab Rivaroxaban [Xarelto] 2.5 mg PO DAILY #30 tablet Famotidine [Pepcid] 20 mg PO BID #60 tab Cholecalciferol [Vitamin D3 (25 Mcg = 1000 Iu)] 50 mcg PO DAILY #90 tablet Continue Lisinopril-Hctz 10-12.5 mg [Zestoretic 10-12.5] 1 each PO DAILY Discontinued Azithromycin [Zithromax Z-pack (6 tabs)] See Taper PO DIRECTED Discharge Medication List Lisinopril-Hctz 10-12.5 mg [Zestoretic 10-12.5] 1 each PO DAILY 12/23/13 [History] Acetaminophen Tab [Tylenol] 650 mg PO Q4HR PRN tab 06/13/20 [Rx] Ascorbic Acid [Vitamin C] 1,000 mg PO DAILY #30 tab 06/13/20 [Rx] Cholecalciferol [Vitamin D3 (25 Mcg = 1000 Iu)] 50 mcg PO DAILY #90 tablet 06/13/20 [Rx] Famotidine [Pepcid] 20 mg PO BID #60 tab 06/13/20 [Rx] Rivaroxaban [Xarelto] 2.5 mg PO DAILY #30 tablet 06/13/20 [Rx] Zinc Sulfate [Orazinc] 220 mg PO DAILY #30 cap 06/13/20 [Rx] predniSONE 10 mg PO DAILY #30 tab 06/13/20 [Rx] Follow up Appointment(s)/Referral(s): Aquilino Alvarez MD [Primary Care Provider] - 06/26/20 2:00 pm Efrain Morse MD [STAFF PHYSICIAN] - 06/27/20 1:00 pm Patient Instructions/Handouts: Coronavirus Disease 2019 (COVID-19) Activity/Diet/Wound Care/Special Instructions: incentive spirometer covid isolation Discharge Disposition: HOME SELF-CARE
== END 2020-06-13 15:47 | disposition home or self-care (01) | DRG 871 ==
LOC: EC 22:58 → 4SSUR 06-09 03:56
PROVIDERS: ADMIT Hospitalist; ATTEND Hospitalist
PROC: XW033E5 Introduction of Remdesivir Anti-infective into Peripheral Vein, Percutaneous Approach, New Technology Group 5 (ICD-10-PCS; principal; 2020-06-09)
DX: A41.89 Other specified sepsis (principal); U07.1 COVID-19; J12.82 Pneumonia due to coronavirus disease 2019; J96.01 Acute respiratory failure with hypoxia; J15.9 Unspecified bacterial pneumonia; D72.810 Lymphocytopenia; I27.20 Pulmonary hypertension, unspecified; I11.9 Hypertensive heart disease without heart failure; E86.0 Dehydration; E66.9 Obesity, unspecified; Z79.899 Other long term (current) drug therapy; Z90.49 Acquired absence of other specified parts of digestive tract; Z90.89 Acquired absence of other organs; Z98.51 Tubal ligation status; Z98.890 Other specified postprocedural states; Z82.49 Family history of ischemic heart disease and other diseases of the circulatory system; Z80.9 Family history of malignant neoplasm, unspecified; Z68.32 Body mass index [BMI] 32.0-32.9, adult; Z87.11 Personal history of peptic ulcer disease
CPT/HCPCS: 36415; 71045; 71046; 71275; 80053; 82728; 83605; 83615; 83735; 84145; 85025; 85379; 85610; 85730; 86140; 87040; 93005; 94760; 96374; 99285

== ENCOUNTER → 2023-07-22 | Outpatient (CLI) | payer MEDICARE ==
[2023-07-22 15:32] VITALS: BP 145/86; PULSE 104; RESP 16; TEMP 98
--- NOTE | 2023-07-22 15:41 | P.SLEEP ---
History of Present Illness DATE: 07/22/2023 CONSULTATION/NEW PATIENT EVALUATION HISTORY OF PRESENT ILLNESS/SLEEP-WAKE EVALUATION: 72-year-old lady had been e valuated in the sleep center for obstructive sleep apnea hypopnea syndrome. Patient has history of obstructive sleep apnea hypopnea syndrome since 2016. Patient continued to use your CPAP equipment every night. Presently she has second CPAP unit which is about 1-year-old. I checked CPAP unit range of the pressure 5-15, average pressure 10.7 cm of H2O. Usage is more than 90% of nights, average 6.2 hours per night. Leak is 24 L/min which is borderline, apnea-hypopnea index is 1.0 which is normal. Tube temperature is low 70 degree. SLEEP SCHEDULE: Usually sleep schedule from 10 PM to 6 AM 7 days a week. FALLING ASLEEP: No problems with falling asleep. DURING SLEEP: No snoring while using CPAP. Patient may wake up from sleep once to use bathroom. No history of hypnogogical hallucinations, sleep paralysis, or cataplexy. DURING THE DAY/WAKE STATE: Patient may take 1 nap at afternoon time. [place] sleepiness scale is 9, which is borderline. PAST MEDICAL HISTORY: Hypertension, hyperlipidemia, diabetes mellitus type 2, acid reflux, knee and hip arthritis. PAST SURGICAL HISTORY: Ear surgery. MEDICATIONS: Please see below. SOCIAL HISTORY: Please see below. FAMILY HISTORY: Hypertension, heart problems, cancer. REVIEW OF SYSTEMS: No snoring on CPAP. No fevers. No double vision. No recent chest pain. No shortness of breath. No abdominal pain. No bleeding episodes. No blood in urine. No seizure episodes. PHYSICAL EXAMINATION: GENERAL: A pleasant patient without any distress. VITAL SIGNS: Please see below, weight 203 pounds, body mass index 33.2. HEENT: PERRLA, EOMI. Evaluation of oropharynx showed tongue protrudes midline, low position of soft palate Mallampati 4. NECK: Supple. No JVD. Thyroid is not palpable. 16.5 inches in circumference. LUNGS: Clear to percussion and to auscultation. Good air exchange. No wheezing or rhonchi. HEART: S1, S2 regular. No murmurs, gallops or rubs. ABDOMEN: Soft and nontender. Bowel sounds are present. No organomegaly appreciated. EXTREMITIES: No clubbing or cyanosis. SECONDARY SCHOOL REGISTRAR: Awake, alert, and oriented x3. Cranial nerves 2 to 7 intact. There is no fasciculation or atrophy noted. No focal deficits observed. ASSESSMENT: 1. Obstructive sleep apnea hypopnea syndrome for 16 years diagnosed at another institution. Patient continued to use CPAP equipment every night for the whole night. No snoring or awakenings from sleep while using CPAP. Extremely low position of soft palate Mallampati 4, wide neck 16.5 inches in circumference. 2. Mild obesity, BMI 33.2. 3. Hypertension. 4. Diabetes mellitus type 2. 5 hyperlipidemia. 6 . Acid reflux. 7. Knee and hip arthritis. PLAN: 1. Patient should continue to use CPAP equipment every night for the whole night. 2. Prescription for all necessary CPAP supplies. 3. Preferable position during sleep on the side. 4. No driving if patient feels any sleepiness. Patient is aware of civil and criminal liability for unsafe driving. 5. Sleep hygiene with regular sleep time for at least 7.5-8 hours. 6. Watching and losing weight. 7. Temperature in the tube was adjusted up to 80 degree. 8. Will get results of previous sleep studies. 9. Follow-up visit in 6 months, or earlier if patient has any problems. Thank you very much for referring this patient for consultation. Sincerely, Robert Almendarez MD, PhD, FAASM. Diplomat of [place] [employer], Sleep Medicine Board by [place] [employer] [place] [employer] [facility] [employer] cc: Sunday Alvarez MD Past Medical History Past Medical History: Hypertension, Osteoarthritis (OA), Sleep Apnea/CPAP/BIPAP Additional Past Medical History / Comment(s): covid 06/20 History of Any Multi-Drug Resistant Organisms: None Reported Past Surgical History: Appendectomy, Tonsillectomy, Tubal Ligation Additional Past Surgical History / Comment(s): ear sx, Past Anesthesia/Blood Transfusion Reactions: No Reported Reaction Past Psychological History: No Psychological Hx Reported Smoking Status: Never smoker Past Alcohol Use History: Occasional Past Drug Use History: None Reported - Past Family History Mother Family Medical History: Cancer Father Family Medical History: Congestive Heart Failure (CHF), Coronary Artery Disease (CAD) Medications and Allergies Home Medications Medication Instructions Recorded Confirmed Type Lisinopril-Hctz 10-12.5 mg 1 each PO DAILY 12/23/13 06/09/20 History [Zestoretic 10-12.5] Acetaminophen Tab [Tylenol] 650 mg PO Q4HR PRN tab 06/13/20 Rx Ascorbic Acid [Vitamin C] 1,000 mg PO DAILY #30 tab 06/13/20 Rx Cholecalciferol [Vitamin D3 (25 50 mcg PO DAILY #90 tablet 06/13/20 Rx Mcg = 1000 Iu)] Famotidine [Pepcid] 20 mg PO BID #60 tab 06/13/20 Rx Rivaroxaban [Xarelto] 2.5 mg PO DAILY #30 tablet 06/13/20 Rx Zinc Sulfate [Orazinc] 220 mg PO DAILY #30 cap 06/13/20 Rx predniSONE 10 mg PO DAILY #30 tab 06/13/20 Rx Celecoxib 200 mg PO BID 07/22/23 07/22/23 History Lisinopril-Hctz 20-12.5 mg 20 mg PO DAILY 07/22/23 07/22/23 History [Zestoretic 20-12.5] Mv-Min/FA/Vit K/Lutein/Zeaxant 1 capsule PO DAILY 07/22/23 07/22/23 History [Preservision Areds 2 Plus Mv] Omeprazole 20 mg PO DAILY 07/22/23 07/22/23 History Rosuvastatin Calcium 5 mg PO DAILY 07/22/23 07/22/23 History Vit C/E/Zn/Coppr/Lutein/Zeaxan 07/22/23 History [Preservision Areds 2 Softgel] metFORMIN HCL ER [Glucophage XR] 1,000 mg PO DAILY MDD 1000 MG 07/22/23 07/22/23 History Allergies Allergy/AdvReac Type Severity Reaction Status Date / Time No Known Allergies Allergy Verified 06/09/20 07:55 Physical Exam Vitals: Vital Signs Temp Pulse Resp BP Pulse Ox 07/22/23 14:44 98 F 104 H 16 145/86 93 L Intake and Output 07/22/23 07/22/23 07/22/23 06:59 14:59 22:59 Other: Weight 92.079 kg Sleep Note - Sleep Data ESS Total: 9 - Sleep Note Sleep Note: Temperature: 98 F Pulse Rate: 104 Respiratory Rate: 16 Blood Pressure: 145/86 SpO2: 93 Height: 5 ft 5.5 in Weight: 92.079 kg BMI: Neck Circumference: 16.5
== END ==
LOC: 3 N SLEEP 14:07
PROVIDERS: ATTEND Internal Medicine
DX: G47.33 Obstructive sleep apnea (adult) (pediatric) (principal); E66.9 Obesity, unspecified; I10 Essential (primary) hypertension; E11.9 Type 2 diabetes mellitus without complications; E78.5 Hyperlipidemia, unspecified; K21.9 Gastro-esophageal reflux disease without esophagitis; M16.9 Osteoarthritis of hip, unspecified; M17.9 Osteoarthritis of knee, unspecified; Z68.33 Body mass index [BMI] 33.0-33.9, adult; Z99.89 Dependence on other enabling machines and devices; Z79.899 Other long term (current) drug therapy; Z79.01 Long term (current) use of anticoagulants; Z79.84 Long term (current) use of oral hypoglycemic drugs
CPT/HCPCS: 99211

== ENCOUNTER → 2024-02-19 | Outpatient (CLI) | payer MEDICARE ==
[2024-02-19 16:20] LABS: ALT 21 U/L (8-44); AST 16 U/L (13-35); Albumin 4.3 g/dL (3.8-4.9); Albumin/Globulin Ratio 1.95 Ratio (1.60-3.17); Alkaline Phosphatase 73 U/L (41-126); BUN/Creat Ratio 29.29 Ratio (12.00-20.00); Blood Urea Nitrogen 20.5 mg/dL (9.0-27.0); Calcium 9.7 mg/dL (8.7-10.3); Carbon Dioxide 27.7 mmol/L (21.6-31.8); Chloride 104 mmol/L (96-109); Chol/HDL Ratio 3.43 Ratio; Globulin 2.2 g/dL (1.6-3.3); Glucose 120 mg/dL (70-110); LDL Cholesterol,Calculated 115.3 mg/dL (0.0-131.0); Potassium 4.2 mmol/L (3.5-5.5); Sodium 144 mmol/L (135-145); Total Bilirubin 0.3 mg/dL (0.3-1.2); Total Protein 6.5 g/dL (6.2-8.2)
== END | disposition home or self-care (01) ==
LOC: LABWHC1 07:38
PROVIDERS: ATTEND Family Medicine
DX: E11.65 Type 2 diabetes mellitus with hyperglycemia (principal)
CPT/HCPCS: 36415; 80053; 80061; 83036

== ENCOUNTER → 2024-03-09 | Outpatient (CLI) | payer MEDICARE ==
[2024-03-09 15:06] VITALS: BP 143/88; PULSE 103; RESP 16; TEMP 97.7
--- NOTE | 2024-03-09 15:29 | P.PROGSL ---
Subjective DATE: 03/09/2024 FOLLOW UP VISIT. Patient with obstructive sleep apnea hypopnea syndrome return to sleep center for follow-up visit. Information from previous visit have been reviewed. Patient is using PAP equipment every night for the whole night, getting PAP supplies in time. The patient does not have significant problems with the mask, PAP unit and humidification. [place] sleepiness scale is 9, which is borderline normal. I checked information from PAP unit. PAP unit pressure 5-15, average 11.2 cm H2O. Usage is 100% for more then 4 hours, average 6 hours per night. Leak is slightly increased to 33.0 l/m. Apnea Hypopnea Index is 1.1, which is normal. MEDICATIONS have been reviewed, please see below. During physical exam: GENERAL: A pleasant patient without any distress. VITAL SIGNS: Please see below, weight is 196.6 lbs. HEENT: PERRLA, EOMI.low position of soft palate, Mallapati 4 . NECK: Supple. No JVD. LUNGS: Clear to percussion and to auscultation. Good air exchange. No wheezing or rhonchi. HEART: S1, S2 regular. ABDOMEN: Soft and nontender.[] EXTREMITIES: No clubbing or cyanosis. WARNING ANALYST: Awake, alert, and oriented x3. No focal deficit. Impressions: 1. Obstructive sleep apnea-hypopnea syndrome. Patient demonstrated great compliance with treatment, benefiting from treatment. 2. Mild obesity, BMI 32.4, patient lost 7 pounds comparing with previous visit. 3. Hypertension. 4. Diabetes mellitus type 2. 5. Acid reflux. 6. Hyperlipidemia. 7. Knee and hip arthritis. Plan: 1. Continue using PAP equipment every night for the whole night. 2. Sleep hygiene with regular time in bed for at least 7.5-8 hours 3. PAP unit should stay lower then position of the head. 4. Advised patient to remove all remaining water from humidifier canister daily and make it dry after each usage. Refill canister with fresh distilled water before each usage. 5. Watching weight. 6. Precautions related to driving. No driving if feel any sleepiness. 7. I will maintain prescription for PAP supplies including mask, tube, filters. 8. Follow up visit in 8 months or earlier if patient has any problems. Thank you very much for allowing me to participate in the management of your patient. Robert Almendarez MD, PhD, FAASM. Diplomat of [place] [employer], Sleep Medicine Board by [place] [employer] [facility] [place] cc: Sunday Alvarez MD Objective - Vital Signs Vital Signs: Vital Signs Temp 97.7 F 03/09/24 15:03 Pulse 103 H 03/09/24 15:03 Resp 16 03/09/24 15:03 BP 143/88 03/09/24 15:03 Pulse Ox 96 03/09/24 15:03 FiO2 Intake & Output 03/08/24 03/09/24 03/09/24 18:59 06:59 18:59 Weight 46.72 kg Home Medications: Home Medications Medication Instructions Recorded Confirmed Type Lisinopril-Hctz 10-12.5 mg 1 each PO DAILY 12/23/13 06/09/20 History [Zestoretic 10-12.5] Acetaminophen Tab [Tylenol] 650 mg PO Q4HR PRN tab 06/13/20 Rx Ascorbic Acid [Vitamin C] 1,000 mg PO DAILY #30 tab 06/13/20 Rx Cholecalciferol [Vitamin D3 (25 50 mcg PO DAILY #90 tablet 06/13/20 Rx Mcg = 1000 Iu)] Famotidine [Pepcid] 20 mg PO BID #60 tab 06/13/20 Rx Rivaroxaban [Xarelto] 2.5 mg PO DAILY #30 tablet 06/13/20 Rx Zinc Sulfate [Orazinc] 220 mg PO DAILY #30 cap 06/13/20 Rx predniSONE 10 mg PO DAILY #30 tab 06/13/20 03/09/24 Rx Celecoxib 200 mg PO BID 07/22/23 03/09/24 History Lisinopril-Hctz 20-12.5 mg 20 mg PO DAILY 07/22/23 03/09/24 History [Zestoretic 20-12.5] Mv-Min/FA/Vit K/Lutein/Zeaxant 1 capsule PO DAILY 07/22/23 03/09/24 History [Preservision Areds 2 Plus Mv] Omeprazole 20 mg PO DAILY 07/22/23 03/09/24 History Rosuvastatin Calcium 5 mg PO DAILY 07/22/23 03/09/24 History Vit C/E/Zn/Coppr/Lutein/Zeaxan 07/22/23 History [Preservision Areds 2 Softgel] metFORMIN HCL ER [Glucophage XR] 1,000 mg PO BID MDD 1000 MG 07/22/23 03/09/24 History Ubidecarenone [Co Q-10] 100 mg PO DAILY 03/09/24 03/09/24 History
== END ==
LOC: 3 N SLEEP 13:54
PROVIDERS: ATTEND Internal Medicine
DX: G47.33 Obstructive sleep apnea (adult) (pediatric) (principal); E66.9 Obesity, unspecified; I10 Essential (primary) hypertension; E78.5 Hyperlipidemia, unspecified; E11.9 Type 2 diabetes mellitus without complications; K21.9 Gastro-esophageal reflux disease without esophagitis; M17.10 Unilateral primary osteoarthritis, unspecified knee; M16.9 Osteoarthritis of hip, unspecified; Z79.899 Other long term (current) drug therapy; Z79.84 Long term (current) use of oral hypoglycemic drugs
CPT/HCPCS: 99212

== ENCOUNTER → 2024-09-20 | Outpatient (CLI) | payer MEDICARE ==
[2024-09-20 15:38] LABS: Cholesterol 225.00 mg/dL (0.00-200.00); HDL Cholesterol 57.60 mg/dL (40.00-60.00); LDL Cholesterol,Calculated 143.8 mg/dL (0.0-131.0); Triglycerides 118.00 mg/dL (0.00-149.00); VLDL Calculation 23.60 mg/dL (5.00-40.00)
[2024-09-20 15:39] LABS: ALT 21 U/L (8-44); AST 18 U/L (13-35); Albumin 4.4 g/dL (3.8-4.9); Albumin/Globulin Ratio 1.76 Ratio (1.60-3.17); Alkaline Phosphatase 75 U/L (41-126); Anion Gap 14.20 mmol/L (4.00-12.00); BUN/Creat Ratio 32.71 Ratio (12.00-20.00); Blood Urea Nitrogen 22.9 mg/dL (9.0-27.0); Calcium 9.9 mg/dL (8.7-10.3); Carbon Dioxide 24.8 mmol/L (21.6-31.8); Chloride 102 mmol/L (96-109); Globulin 2.5 g/dL (1.6-3.3); Glucose 119 mg/dL (70-110); Potassium 4.6 mmol/L (3.5-5.5); Sodium 141 mmol/L (135-145); Total Protein 6.9 g/dL (6.2-8.2)
[2024-09-20 15:54] LABS: Basophils # (A) 0.07 X 10*3/uL (0.00-0.10); Basophils % (A) 1.0 %; Eosinophils # (A) 0.15 X 10*3/uL (0.04-0.35); Eosinophils % (A) 2.2 %; HCT 42.7 % (37.2-46.3); HGB 13.7 g/dL (12.0-15.0); Immature Grans, Automated 0.30 %; Lymphocytes # (A) 2.29 X 10*3/uL (0.90-5.00); Lymphocytes % (A) 33.9 %; MCH 29.7 pg (27.0-32.0); MCHC 32.1 g/dL (32.0-37.0); MCV 92.6 FL (80.0-97.0); Monocytes # (A) 0.49 X 10*3/uL (0.20-1.00); Monocytes % (A) 7.3 %; NRBC Per 100 WBC 0 X 10*3/uL (0.00-0.01); Neutrophils # (A) 3.73 X 10*3/uL (1.80-7.70); Neutrophils % (A) 55.3 %; Platelet Count 308 X 10*3/uL (140-440); RBC 4.61 X 10*6/uL (4.10-5.20); RDW 13.2 % (11.5-14.5); WBC 6.75 X 10*3/uL (4.50-10.00)
== END | disposition home or self-care (01) ==
LOC: LABWHC1 08:29
PROVIDERS: ATTEND Family Medicine
DX: E11.65 Type 2 diabetes mellitus with hyperglycemia (principal)
CPT/HCPCS: 36415; 80053; 80061; 82043; 82570; 83036; 84443; 85025